=== PATIENT | female | born 1960 | race Caucasian/White ===

== ENCOUNTER 2017-07-14 10:40 | Emergency (ER) | payer BC ==
[~2017-07-14] VITALS: Ht 167.6 cm; Wt 153.2 kg
[2017-07-14 10:45] VITALS: BP 137/66; PULSE 84; RESP 18; TEMP 99.4; O2SAT 97
[2017-07-14] MEDS ORDERED: LISI-515 PO (12:08)
[2017-07-14] MEDS ORDERED: METF1000 PO (12:08)
[2017-07-14] MEDS ORDERED: ATEN50TA PO (12:08)
[2017-07-14] MEDS ORDERED: CETI10CA3 (12:08)
[2017-07-14] MEDS ORDERED: ASPI-516 CHEW (12:08)
[2017-07-14] MEDS ORDERED: ESCI20TA PO (12:08)
--- NOTE | 2017-07-14 12:09 | PD ---
HPI Chief Complaint: Skin Problem Time Seen by Provider: 11:55 Travel History International Travel<30 days: No Contact w/Intl Traveler<30days: No Traveled to known affect area: No History of Present Illness HPI Patient is a 56-year-old female presents to emergency room for evaluation of right lower extremity cellulitis. Patient reports that since Saturday, she has not been feeling well. Patient reports that she has been having on and off fevers and chills. Patient reports that she had an abrasion to her right lower extremity on Saturday, reports that starting Saturday, she noticed redness to her lower extremity. She did to to the beach on Saturday and did go into the ocean. Patient reports that since then, redness has increased and is now circumferential. Reports that tetanus is up to date. PFSH Past Medical History Diabetes: Yes (METFORMIN) Hypertension: Yes ?: Not LMP: NOW Past Surgical History Surgical History: No Previous Surgery Social History Tobacco Use: No Allergies-Medications (Allergen,Severity, Reaction): Coded Allergies: No Known Allergies (Unverified , 07/14/17) Reported Meds & Prescriptions Reported Meds & Active Scripts Active Reported Aspirin 81 Mg Chew 81 Mg CHEW DAILY Zyrtec (Cetirizine HCl) 10 Mg Capsule Escitalopram (Escitalopram Oxalate) 20 Mg Tab 20 Mg PO HS Atenolol 50 Mg Tab 50 Mg PO DAILY Lisinopril 20 Mg Tab 20 Mg PO DAILY Metformin (Metformin HCl) 1,000 Mg Tab 1,000 Mg PO BIDPC Review of Systems General / Constitutional: Positive: Fever, Chills Eyes: No: Visual changes HENT: No: Headaches Cardiovascular: No: Chest Pain or Discomfort Respiratory: No: Shortness of Breath Gastrointestinal: No: Abdominal Pain Genitourinary: No: Dysuria Musculoskeletal: Positive: Edema, No: Pain Skin: No Rash Neurologic: No: Weakness Psychiatric: No: Depression Endocrine: No: Polydipsia Hematologic/Lymphatic: No: Easy Bruising Physical Exam Narrative GENERAL: NAD SKIN: Focused skin assessment warm/dry. HEAD: Atraumatic. Normocephalic. EYES: Pupils equal and round. No scleral icterus. No injection or drainage. ENT: No nasal bleeding or discharge. Mucous membranes pink and moist. NECK: Trachea midline. No JVD. CARDIOVASCULAR: Regular rate and rhythm. No murmur appreciated. RESPIRATORY: No accessory muscle use. Clear to auscultation. Breath sounds equal bilaterally. GASTROINTESTINAL: Abdomen soft, non-tender, nondistended. Hepatic and splenic margins not palpable. MUSCULOSKELETAL: No obvious deformities. No clubbing. No cyanosis. +2 edema to RLE, patient with circumferential erythema to right lower extremity, there is no pus or drainage from lower extremity, pulses intact. NEUROLOGICAL: Awake and alert. No obvious cranial nerve deficits. Motor grossly within normal limits. Normal speech. PSYCHIATRIC: Appropriate mood and affect; insight and judgment normal. Data Data Last Documented VS Vital Signs Date Time Temp Pulse Resp B/P (MAP) Pulse Ox O2 Delivery O2 Flow Rate FiO2 07/14/17 12:00 20 07/14/17 10:45 99.4 84 137/66 (89) 97 Orders Orders Basic Metabolic Panel (Bmp) (07/14/17 12:01) Complete Blood Count With Diff (07/14/17 12:01) Blood Culture (07/14/17 12:01) Ecg Monitoring (07/14/17 12:01) Iv Access Insert/Monitor (07/14/17 12:01) Oximetry (07/14/17 12:01) Vancomycin Inj (Vancomycin Inj) (07/14/17 12:15) Levofloxacin 750 Mg Premix Inj (Levaquin (07/14/17 12:15) Labs Laboratory Tests Test 07/14/17 12:20 White Blood Count 9.9 TH/MM3 Red Blood Count 4.36 MIL/MM3 Hemoglobin 11.3 GM/DL Hematocrit 35.0 % Mean Corpuscular Volume 80.3 FL Mean Corpuscular Hemoglobin 25.8 PG Mean Corpuscular Hemoglobin Concent 32.2 % Red Cell Distribution Width 13.8 % Platelet Count 152 TH/MM3 Mean Platelet Volume 10.2 FL Neutrophils (%) (Auto) 80.6 % Lymphocytes (%) (Auto) 12.5 % Monocytes (%) (Auto) 4.9 % Eosinophils (%) (Auto) 0.1 % Basophils (%) (Auto) 1.9 % Neutrophils # (Auto) 8.0 TH/MM3 Lymphocytes # (Auto) 1.2 TH/MM3 Monocytes # (Auto) 0.5 TH/MM3 Eosinophils # (Auto) 0.0 TH/MM3 Basophils # (Auto) 0.2 TH/MM3 CBC Comment DIFF FINAL Differential Comment Blood Urea Nitrogen 21 MG/DL Creatinine 1.10 MG/DL Random Glucose 123 MG/DL Calcium Level 9.2 MG/DL Sodium Level 130 MEQ/L Potassium Level 3.7 MEQ/L Chloride Level 95 MEQ/L Carbon Dioxide Level 26.4 MEQ/L Anion Gap 9 MEQ/L Estimat Glomerular Filtration Rate 52 ML/MIN MDM Medical Decision Making Medical Screen Exam Complete: Yes Emergency Medical Condition: Yes Medical Record Reviewed: Yes Interpretation(s) Vital Signs Date Time Temp Pulse Resp B/P (MAP) Pulse Ox O2 Delivery O2 Flow Rate FiO2 07/14/17 10:45 99.4 84 18 137/66 (89) 97 Differential Diagnosis Cellulitis, bacteremia Narrative Course 56-year-old female presents to emergency room with complaints of right lower extremity cellulitis which began on Saturday. Patient does have circumferential area of cellulitis to her right lower extremity, she does report having fevers and chills over the last few days which she has been taking Tylenol for. Patient admits to being ambulation on Saturday, discussed concerns for cellulitis. Given her fevers and chills, blood cultures ordered to evaluate for possible bacteremia. 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 The patient was placed on a cardiac exercise specialist with oximetry and frequent blood pressure monitoring. The patient had an IV access obtained and blood work sent for analysis. The patient was initially provided IV vancomycin as well as IV Levaquin The patients laboratory studies were reviewed and remarkable for: CBC & BMP Diagram 07/14/17 12:20 Calcium Level 9.2 Patient reevaluated, patient reports that she is feeling much better. I recommended the patient be admitted to the hospital due to her circumferential cellulitis with her fevers at home. Patient does not want to be admitted to the hospital as she would like to drive home. Discussed need for antibiotics. Discussed with her that I will start her on Levaquin for 10 days as there is concerns for her saltwater exposure. Signs and symptoms of when to return to the emergency room was reviewed patient in detail. Patient cell phone number is [phone] Diagnosis Primary Impression: Cellulitis Qualified Codes: L03.115 - Cellulitis of right lower limb Additional Impression: Hyponatremia Patient Instructions: General Instructions Additional Instructions: Please provide patient with a copy of their lab work and studies at discharge* * Please follow up with your primary care doctor in 2-3 days Return to the ER if symptoms worsen or progress Return to the ER as needed Please take all antibiotics as prescribed Please follow-up with all cultures from today. Med/Other Pt SpecificInfo: Prescription(s) given Scripts Levofloxacin (Levaquin) 750 Mg Tablet 750 MG PO DAILY for Infection, #9 TAB 0 Refills Prov: Fay Banks DO 07/14/17 Disposition: 01 DISCHARGE HOME Condition: Stable Fay Banks DO Jul 14, 2017 12:09
[2017-07-14] MEDS ORDERED: VANCOMYCIN INJ 2,250 MG in SODIUM CHLORID 0.9% 500 ML INJ 500 ML IV ONE (12:15)
[2017-07-14] MEDS ORDERED: LEVOFLOXACIN 750 MG PREMIX INJ 150 ML IV ONE (12:15)
[2017-07-14 12:41] LABS: BASOPHIL # 0.2 TH/MM3 (0-0.2); BASOPHIL % 1.9 % (0.0-2.0); EOSINOPHIL % 0.1 % (0.0-4.0); HEMOGLOBIN 11.3 GM/DL (11.6-15.3); LYMPH % 12.5 % (9.0-44.0); LYMPHOCYTE # 1.2 TH/MM3 (1.0-4.8); MEAN CELL VOLUME 80.3 FL (80.0-100.0); MEAN CORPUSCULAR HEMOGLOBIN 25.8 PG (27.0-34.0); MEAN CORPUSCULAR HGB CONC 32.2 % (32.0-36.0); MEAN PLATELET VOLUME 10.2 FL (7.0-11.0); MONO % 4.9 % (0.0-8.0); MONOCYTE # 0.5 TH/MM3 (0-0.9); NEUT % 80.6 % (16.0-70.0); PLATELET COUNT 152 TH/MM3 (150-450); RED BLOOD COUNT 4.36 MIL/MM3 (4.00-5.30); RED CELL DISTRIBUTION WIDTH 13.8 % (11.6-17.2); WHITE BLOOD COUNT 9.9 TH/MM3 (4.0-11.0)
[2017-07-14 12:48] LABS: BICARBONATE 26.4 MEQ/L (21.0-32.0); CALCIUM 9.2 MG/DL (8.5-10.1)
[2017-07-14 12:52] LABS: CREATININE 1.1 MG/DL (0.50-1.00)
[2017-07-14] MEDS ORDERED: LEVA750T9 PO (14:18)
[2017-07-14 17:01] VITALS: RESP 18; O2SAT 99
[2017-07-14 17:10] VITALS: BP 118/44; PULSE 90; RESP 18; O2SAT 97
== END 2017-07-14 17:42 | disposition home or self-care (01) ==
LOC: PHED 10:40
DX: L03.115 Cellulitis of right lower limb (principal); E87.1 Hypo-osmolality and hyponatremia; E11.9 Type 2 diabetes mellitus without complications; I10 Essential (primary) hypertension; Z79.82 Long term (current) use of aspirin; Z79.899 Other long term (current) drug therapy
CPT/HCPCS: 80048; 85025; 87040; 96365; 96366; 96367; 99284; J1956; J3370; J7040